=== PATIENT | female | born 1985 | race Caucasian/White ===

== ENCOUNTER → 2016-05-19 | Outpatient (CLI) | payer OTHER ==
[2016-05-19 19:11] LABS: THYROID PEROXIDASE ANTIBODY < 28.0 U/ML (<60.0)
[2016-05-19 19:12] LABS: FOLATE 23.1 NG/ML; FREE T4 1.06 NG/DL (0.76-1.46); VITAMIN B12 LEVEL 713 PG/ML
[2016-05-19 20:32] LABS: BASO % 0.4 % (0.0-1.0); EOS # 0.1 K/mm3 (0.0-0.50); EOS % 1.9 % (0.0-3.0); LARGE UNSTAINED CELL # 0.1 K/mm3 (0.0-0.4); LARGE UNSTAINED CELL % 1.5 % (0.0-4.0); LYMPH # 1.2 K/mm3 (1.5-4.5); LYMPH % 20.9 % (24.0-44.0); MEAN CORPUSCULAR HEMOGLOBIN 30.4 pg (27.0-33.0); MEAN CORPUSCULAR HGB CONC 34.8 g/dl (32.0-36.5); MEAN CORPUSCULAR VOLUME 87.4 fl (80.0-96.0); MONO # 0.2 K/mm3 (0.0-0.8); MONO % 3.8 % (0.0-5.0); NEUTROPHILS # 4.1 K/mm3 (1.8-7.7); NEUTROPHILS % 71.4 % (36.0-66.0); PLATELET COUNT, AUTOMATED 150 k/mm3 (150-450); RED CELL DISTRIBUTION WIDTH 12.1 % (11.5-14.5); WHITE BLOOD COUNT 5.7 K/mm3 (4.0-10.0)
[2016-05-19 21:14] LABS: ERYTHROCYTE SEDIMENTATION RATE 13 mm/hr (0-20)
== END ==
LOC: M SMT 14:20
PROVIDERS: ATTEND Family Medicine
DX: M25.549 Pain in joints of unspecified hand (principal); F32.0 Major depressive disorder, single episode, mild; D51.3 Other dietary vitamin B12 deficiency anemia; D69.6 Thrombocytopenia, unspecified; R63.5 Abnormal weight gain

== ENCOUNTER → 2016-07-12 | Outpatient (CLI) | payer OTHER | LOC: M WUC 16:55 | PROVIDERS: ATTEND Family Medicine | DX: R76.0 Raised antibody titer (principal) ==

== ENCOUNTER → 2016-09-14 | Outpatient (REF) | payer OTHER | LOC: M LAB REF 09:59 | PROVIDERS: ATTEND Family Medicine | DX: Z01.419 Encounter for gynecological examination (general) (routine) without abnormal findings (principal); Z11.51 Encounter for screening for human papillomavirus (HPV) ==

== ENCOUNTER → 2017-02-04 | Outpatient (CLI) | payer OTHER ==
--- NOTE | 2017-02-04 18:02 | REP ---
REASON: Left lower quadrant pain. PRIORS: None. Transvesical imaging only was performed. The reason for the lack of transvaginal imaging is unknown to me. The uterus measures 8.8 x 4.4 x 6.5 cm. The parenchymal echo pattern is within normal limits. The endometrial echo complex measures 9 mm in its greatest thickness and is slightly heterogenous. There is an incidental Nabothian cyst. There is no free fluid in the cul-de-sac. The right ovary measures 2.4 x 1.5 x 2.2 cm and is within normal limits with an RI of 0.78. The left ovary measures 3.9 x 1.6 x 2.4 cm. Seen within the left ovary there is a 2.3 cm sized mixed echo predominately hypoechoic structure, likely representing an involuting cyst. IMPRESSION: Findings as described above. Signed by Vazquez Valles DO 02/04/2017 07:17 P
== END ==
LOC: M RAD 17:19
PROVIDERS: ATTEND Physician Assistant Medical
DX: R10.9 Unspecified abdominal pain (principal)

== ENCOUNTER → 2018-11-06 | Outpatient (CLI) | payer OTHER ==
--- NOTE | 2018-11-06 21:02 | REP ---
Clinical: Pneumonia. Technique: PA and lateral. Comparison: None. Findings: Left lower lobe infiltrate compatible with acute pneumonia. Mediastinum and cardiac silhouette are normal. [id number] with tip in the SVC. No effusion. No pneumothorax. Skeletal structures intact. Impression: Left lower lobe infiltrate compatible with pneumonia. Follow-up to resolution recommended. Electronically Signed by Michoacano Horton MD 11/06/2018 08:53 P
== END ==
LOC: M WUC 16:09
PROVIDERS: ATTEND Physician Assistant
DX: J18.9 Pneumonia, unspecified organism (principal)